=== PATIENT | male | born 1945 | race African-American/Black ===

== ENCOUNTER 2023-07-19 19:48 | Emergency (ER) | payer OTHER ==
[2023-07-19] MEDS ORDERED: Cefepime 2 GM VIAL ONE (21:15)
[2023-07-19] MEDS ORDERED: Sodium Chloride 0.9% 100 ML ONE (21:15)
[2023-07-19 21:24] LABS: ALT (SGPT) 12 U/L (8-55); AST (SGOT) 12 U/L (5-34); Albumin 3.3 g/dL (3.4-4.8); Alkaline Phosphatase 113 U/L (40-110); Anion Gap 13 mmol/L (10-20); BUN (Urea Nitrogen) 24 mg/dL (8.4-25.7); Bilirubin, Total 0.3 mg/dL (0.2-1.2); Calc. Creatinine Clearance 0 mL/min (70-130); Calcium 8.9 mg/dL (7.8-10.44); Carbon Dioxide 26 mmol/L (23-31); Chloride 102 mmol/L (98-107); Estimated GFR 89; Globulin 2.9 g/dL (2.4-3.5); Glucose 120 mg/dL (83-110); Potassium 4.5 mmol/L (3.5-5.1); Protein, Total 6.2 g/dL (5.8-8.1); Sodium 136 mmol/L (136-145)
[2023-07-19 21:36] LABS: #Basophils 0.2 thou/uL (0.0-0.2); #Eosinphils 0.7 thou/uL (0.0-0.7); #Lymphocytes 9.1 thou/uL (1.20-3.40); #Monocytes 1.4 thou/uL (0.11-0.59); #Neutrophils 9.2 thou/uL (1.40-6.50); %Basophils 0.9 % (0.0-1.0); %Eosinophils 3.6 % (0.0-10.0); %Lymphocytes 44.1 % (21.0-51.0); %Monocytes 6.8 % (0.0-10.0); %Neutrophils 44.6 % (42.0-75.0); Hematocrit 25.7 % (42.0-52.0); Hemoglobin 8.3 g/dL (14.0-18.0); Mean Corpuscular HGB CONC 32.2 g/dL (32.0-36.0); Mean Corpuscular Hemoglobin 28.9 pg (27.0-31.0); Mean Corpuscular Volume 89.5 fl (78.0-98.0); Mean Platelet Volume 7.7 fL (7.4-10.4); Platelet Count 211 10x3/uL (130-400); RBC Distribution Width 12.5 % (11.5-14.5); Red Blood Cell (RBC) Count 2.87 mill/uL (4.70-6.10); White Blood Cell (WBC) Count 20.7 10x3/uL (4.8-10.8)
[2023-07-19] MEDS ORDERED: Sodium Chloride 0.9% 500 ML ONE (21:47)
[2023-07-19] MEDS ORDERED: Vancomycin 1 GM VIAL ONE (21:47)
== END 2023-07-20 01:20 | disposition short-term general hospital (02) ==
LOC: EEVIPCON 19:48 → NAV ERS 19:48
DX: L02.512 Cutaneous abscess of left hand (principal); I10 Essential (primary) hypertension
CPT/HCPCS: 80053; 83605; 85025; 87040; 87070; 87077; 87186; 87205; 96365; 96366; 96367; J0692; J3370; J3490; J7030